=== PATIENT | male | born 1945 | race African-American/Black ===

== ENCOUNTER 2018-08-15 17:16 | Emergency (ER) | payer OTHER ==
[2018-08-15 17:38] VITALS: TEMP 97.7; BMI 20.6
[2018-08-15] MEDS ORDERED: morphine CARPU-JECT 4 MG/1 ML DISP.SYRIN IVPUSH ONE (18:43)
[2018-08-15] MEDS ORDERED: SODIUM CHLORIDE 1,000 ML IV STA (18:43)
[2018-08-15] MEDS ORDERED: morphine SULFATE 4 MG/ML VIAL ONE (18:49)
[2018-08-15 19:17] LABS: BASO % 0.6 % (0-2.0); EOS % 4.7 % (0-4.5); HEMATOCRIT 41.8 % (35.4-49); HEMOGLOBIN 13.6 GM/dL (11.7-16.9); LYMPH % 30.2 % (8-40); MCH 25.9 pg (25.7-33.7); MCHC 32.7 g/dl (32.0-35.9); MEAN CELL VOLUME 79.1 fl (80-96); MEAN PLT VOLUME 8.6 fl (7.5-11.1); NEUT % 58.5 % (42.8-82.8); PLATELET COUNT 223 K/MM3 (134-434); RBC 5.28 M/mm3 (4.00-5.60); RDW 13.8 % (11.9-15.9); WHITE BLOOD COUNT 5.9 K/mm3 (4.0-10.0)
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
[2018-08-15 19:24] VITALS: BP 138/85; PULSE 78
[2018-08-15 19:54] LABS: ALBUMIN 3.9 g/dl (3.4-5.0); ALK PHOS 57 U/L (45-117); ANION GAP 4 MMOL/L (8-16); BILIRUBIN,TOTAL 0.4 mg/dL (0.2-1); BLOOD UREA NITROGEN 10 mg/dL (7-18); CALCIUM 9.4 mg/dL (8.5-10.1); CHLORIDE 105 mmol/L (98-107); CO2 28 mmol/L (21-32); CREATININE 0.7 mg/dL (0.55-1.3); GLUCOSE,RANDOM 91 mg/dL (74-106); POTASSIUM 4.5 mmol/L (3.5-5.1); SGOT/AST 9 U/L (15-37); SGPT/ALT 15 U/L (13-61); SODIUM 137 mmol/L (136-145); TOT PROT 6.8 g/dl (6.4-8.2)
[2018-08-15 19:55] LABS: LIPASE 76 U/L (73-393)
--- NOTE | 2018-08-15 22:19 | PDOC ---
Attending Attestation - ED Attending Attestation I have performed the following: I have examined & evaluated the patient, The case was reviewed & discussed with the resident, I agree w/resident's findings & plan, Exceptions are as noted <Ruth Ann Agarwal - Last Filed: 08/15/18 22:19> - HPI HPI: 08/15/18 23:39 The patient is a 73 year old male with no significant past medical history who presents to ED with abdominal pain. Patient reports periumbilical pain that has now traveled to his right lower quadrant. He describes his abdominal pain as feeling "full". He has not had a bowel movement for 2 days and denies passing gas and a loss of appetite. He states he last meal was 2 days ago. Patient saw his PCP yesterday, had a sonogram that showed bowel gas. Denies fever or chills. Denies nausea, vomiting. Denies chest pain or shortness of breath. Denies any other symptoms. PCP: Krystin <Matty Thompson - Last Filed: 08/15/18 23:40> Attestations - Attestations 08/15/18 23:40 Documentation prepared by Matty Thompson, acting as medical affairs leader for Ruth Ann Agarwal MD. <Matty Thompson - Last Filed: 08/15/18 23:40>
--- NOTE | 2018-08-16 09:24 | EKG ---
Test Reason : Blood Pressure : / mmHG Vent. Rate : 063 BPM Atrial Rate : 063 BPM P-R Int : 178 ms QRS Dur : 076 ms QT Int : 392 ms P-R-T Axes : 080 042 062 degrees QTc Int : 401 ms NORMAL SINUS RHYTHM NORMAL ECG NO PREVIOUS ECGS AVAILABLE Confirmed by CURT SON MD ([id number]) on 08/16/2018 9:24:11 AM Referred By: Confirmed By:CURT SON MD
== END 2018-08-15 22:55 | disposition left against medical advice (07) ==
LOC: JER 17:16
PROC: 3E033NZ Introduction of Analgesics, Hypnotics, Sedatives into Peripheral Vein, Percutaneous Approach (ICD-10-PCS; principal; 2018-08-15)
DX: R10.13 Epigastric pain (principal)
CPT/HCPCS: 36415; 71260-TC; 74177-TC; 80053; 83605; 83690; 84484; 85025; 93005; 93010; 99284-25; J7030

== ENCOUNTER 2021-01-24 12:06 | Emergency (ER) | payer OTHER ==
[2021-01-24] MEDS ORDERED: BAMLANIVIMAB 700 MG, ETESEVIMAB 1,400 MG in SODIUM CHLORIDE 250 ML IVPB ONE (12:42)
[2021-01-24 12:49] VITALS: BP 137/86; PULSE 90; TEMP 99.1; BMI 29.1
[2021-01-24 13:03] LABS: BASO % 0.3 % (0-2.0); EOS % 0.2 % (0-4.5); HEMATOCRIT 44.1 % (35.4-49); HEMOGLOBIN 14.7 GM/dL (11.7-16.9); LYMPH % 43.1 % (8-40); MCH 26.6 pg (25.7-33.7); MCHC 33.3 g/dl (32.0-35.9); MEAN PLT VOLUME 8.6 fl (7.5-11.1); MONO % 10.3 % (3.8-10.2); NEUT % 46.1 % (42.8-82.8); PLATELET COUNT 177 K/MM3 (134-434); RBC 5.52 M/mm3 (4.00-5.60); RDW 13.8 % (11.9-15.9); WHITE BLOOD COUNT 4.5 K/mm3 (4.0-10.0)
[2021-01-24 13:16] LABS: POTASSIUM 4.3 mmol/L (3.5-5.1)
[2021-01-24 13:17] LABS: CALCIUM 8.6 mg/dL (8.5-10.1)
[2021-01-24 13:18] LABS: BLOOD UREA NITROGEN 12.9 mg/dL (7-18)
== END 2021-01-24 15:43 | disposition home or self-care (01) ==
LOC: JER 12:06
DX: U07.1 COVID-19 (principal)
CPT/HCPCS: 36415; 80048; 85025; 99284-25; M0239; Q0239; Q0245

== ENCOUNTER 2023-02-23 10:49 | Emergency (ER) | payer SELFPAY ==
[2023-02-23 10:53] VITALS: TEMP 97.6; BMI 19.5
[2023-02-23 11:42] LABS: BASO % 0.5 % (0-2.0); EOS % 1.1 % (0-4.5); HEMATOCRIT 39.9 % (35.4-49); HEMOGLOBIN 13.4 GM/dL (11.7-16.9); LYMPH % 33.7 % (8-40); MCH 26.2 pg (25.7-33.7); MCHC 33.5 g/dl (32.0-35.9); MEAN CELL VOLUME 78.1 fl (80-96); MEAN PLT VOLUME 8.2 fl (7.5-11.1); MONO % 8.9 % (3.8-10.2); NEUT % 55.8 % (42.8-82.8); PLATELET COUNT 190 10^3/uL (134-434); RBC 5.12 M/mm3 (4.00-5.60); RDW 14.4 % (11.9-15.9)
[2023-02-23 12:09] LABS: ALBUMIN 3.6 g/dl (3.4-5.0); BILIRUBIN,TOTAL 0.4 mg/dL (0.2-1); BLOOD UREA NITROGEN 12.3 mg/dL (7-18); CALCIUM 8.8 mg/dL (8.5-10.1); CREATININE 0.9 mg/dL (0.55-1.3); MAGNESIUM 2.1 mg/dL (1.8-2.4); TOT PROT 6.7 g/dl (6.4-8.2)
[2023-02-23] MEDS ORDERED: LACTATED RINGERS SOLUTION 1000 ML INFUS.BAG IV ONE (12:09)
[2023-02-23] MEDS ORDERED: FAMOTIDINE 20 MG/50 ML IVPB 20 MG/50 ML MG IVPB ONE ×2 (12:10→12:13)
[2023-02-23 12:36] LABS: PH,URINE 7.5 (5.0-8.0); URINE APPEARANCE CLEAR; URINE BILIRUBIN NEGATIVE (NEGATIVE); URINE COLOR YELLOW; URINE GLUCOSE (UA) NEGATIVE (NEGATIVE); URINE KETONE NEGATIVE (NEGATIVE); URINE LEUK ESTERASE NEGATIVE (NEGATIVE); URINE NITRITE NEGATIVE (NEGATIVE); URINE PROTEIN NEGATIVE (NEGATIVE); URINE UROBILINOGEN 0.2 mg/dL (0.2-1.0)
[2023-02-23 13:32] VITALS: BP 126/72; PULSE 70; RESP 20
== END 2023-02-23 14:30 | disposition home or self-care (01) ==
LOC: JER 10:49
PROC: 3E033GC Introduction of Other Therapeutic Substance into Peripheral Vein, Percutaneous Approach (ICD-10-PCS; principal; 2023-02-23)
DX: K59.00 Constipation, unspecified (principal)
CPT/HCPCS: 0241U-QW; 36415; 74177-TC; 80053; 81003; 83735; 85025; 87086; 99285-25; Q9967